=== PATIENT | male | born 1960 | race Native Hawaiian/Other Pacific Islander ===

== ENCOUNTER 2021-10-29 21:32 | Emergency (ER) | payer OTHER ==
[~2021-10-29] VITALS: Ht 172.7 cm; Wt 54.9 kg
[2021-10-29 22:08] LABS: PLATELET COUNT 214 K/uL (142-355)
[2021-10-29 22:24] LABS: POTASSIUM 3.6 mmol/L (3.6-5.2)
[2021-10-29 22:32] VITALS: BP 148/65; TEMP 98.5
[2021-10-30] MEDS ORDERED: TRAZODONE HYDRO50 MG PO (03:48)
[2021-10-30] MEDS ORDERED: CLON0.5T36 PO (03:48)
[2021-10-30] MEDS ORDERED: LORA0.5T17 PO (03:50)
[2021-10-30] MEDS ORDERED: OLANZAPINE20 M1 PO (03:52)
[2021-10-30] MEDS ORDERED: CITALOPRAM20 MG PO (03:52)
[2021-10-30] MEDS ORDERED: BENZ1TAB43 PO (03:53)
[2021-10-30] MEDS ORDERED: QUETIAPINE50 MG PO (03:54)
[2021-10-30] MEDS ORDERED: AMLODIPINE BESYLATE PO (03:55)
[2021-10-30] MEDS ORDERED: OLANZAPINE5 MG PO (03:56)
[2021-10-30] MEDS ORDERED: MEDROXYPR AC10 MG PO (03:57)
[2021-10-30] MEDS ORDERED: OXCARBAZEPIN300 MG PO (03:58)
[2021-10-30] MEDS ORDERED: MELATONIN10 M3 PO (04:00)
[2021-10-30] MEDS ORDERED: MELATONIN5 M4 PO (04:00)
[2021-10-30] MEDS ORDERED: BUCKLEYS C100 MG/5 M PO (04:01)
[2021-10-30] MEDS ORDERED: ASCORBIC ACD500 MG PO (04:03)
[2021-10-30] MEDS ORDERED: ZINC220 MG PO (04:03)
== END 2021-10-29 22:32 | disposition still patient (30) ==
LOC: ED 21:32
PROVIDERS: Hospitalist
DX: F03.91 Unspecified dementia, unspecified severity, with behavioral disturbance (principal); R45.1 Restlessness and agitation; Z11.52 Encounter for screening for COVID-19; Z04.6 Encounter for general psychiatric examination, requested by authority
CPT/HCPCS: 36415; 80053; 85027; 87635; 93005; 99283; U0003

== ENCOUNTER 2021-11-12 20:36 | Emergency (ER) | payer OTHER ==
[~2021-11-12] VITALS: Ht 172.7 cm; Wt 53.5 kg
[~2021-11-12 20:36] MED LIST: AMLODIPINE BESYLATE PO; ASCORBIC ACD500 MG PO; BENZ1TAB43 PO; BUCKLEYS C100 MG/5 M PO; CITALOPRAM20 MG PO; CLON0.5T36 PO; CONGENTIN 1MG TAB PO; ESCI10TA PO; LORA0.5T17 PO; MAGNSUS68 PO; MEDROXYPR AC10 MG PO; MELATONIN MAXIMU5 MG PO; MELATONIN10 M3 PO; MELATONIN5 M4 PO; OLAN2.5T2 PO; OLANZAPINE20 M1 PO; OLANZAPINE5 MG PO; OXCARBAZEPIN300 MG PO; PANTOPRAZOLE 40MG TA PO; QUETIAPINE50 MG PO; TRAZ50TA36 PO; TRAZODONE HYDRO50 MG PO; ZINC220 MG PO
[2021-11-12 21:09] LABS: PLATELET COUNT 189 K/uL (142-355)
[2021-11-12 22:07] VITALS: BP 148/92; TEMP 98.4
[2021-11-12] MEDS ORDERED: AMLODIPINE BESYLATE PO (22:59)
[2021-11-12] MEDS ORDERED: ESCI10TA PO (23:01)
[2021-11-12] MEDS ORDERED: OLAN2.5T2 PO (23:04)
[2021-11-12] MEDS ORDERED: LORA0.5T17 PO (23:19)
[2021-11-12] MEDS ORDERED: LORA2INJ21 IM (23:21)
[2021-11-13] MEDS ORDERED: RISP25IN IM (02:20)
== END 2021-11-12 22:07 | disposition still patient (30) ==
LOC: ED 20:36
PROVIDERS: Hospitalist
DX: F25.8 Other schizoaffective disorders (principal); F03.91 Unspecified dementia, unspecified severity, with behavioral disturbance; Z11.52 Encounter for screening for COVID-19; Z04.6 Encounter for general psychiatric examination, requested by authority
CPT/HCPCS: 36415; 80053; 85027; 87635; 93005; 99283; U0003